=== PATIENT | female | born 1960 | race African-American/Black ===

== ENCOUNTER → 2016-09-05 | Outpatient (CLI) | payer MEDICARE, OTHER ==
[~2016-09-05] MED LIST: ACTOS PO; COUMADIN PO; DIOVAN PO; FLEXERIL10 MG PO; LIPITOR PO; LORTAB 5/500 TA1 TA1 PO; NORVASC PO; PEN-VEE K PO
--- NOTE | ~2016-09-05 | CT55 ---
[facility] A Service [facility] RADIOLOGY TEXT RESULTS PATIENT: SHARON BREWER LOCATION: [facility] : 56 UNIT #: [id number] AGE: [address]: Gretchen Celestin APRN SEX: F ORDER DR: [id number] [facility] [address] [place], [place] [address] [id number] O MR#: [id number] Acc #: [id number] NAME: SHARON BREWER : 1960 SEX: F STUDY DATE/TIME: 09/05/2016 14:52 UNIT: [facility] ROOM: STUDY DESCRIPTION: CT Chest W Con Attending Physician: Gretchen Celestin A.P.R.N. Ordering Physician: Gretchen Celestin A.P.R.N. Primary Care Physician: Generic Doctor Not In System MEDICAL IMAGING REPORT This report is preliminary unless electronic signature is present EXAM Chest CT with contrast HISTORY Abnormal chest x-ray 1 week ago. Cough, congestion, shortness of breath over the past 3 weeks. TECHNIQUE Axial imaging was obtained with contrast. 80 mL of Isovue was used. This CT exam was performed with one or more of the following radiation dose reduction techniques: automatic control, adjustment of mA and/or kV according to patient size, and iterative reconstruction. 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 There is no evidence of any change in the mediastinum. No new or enlarging mediastinal or hilar lymph nodes are seen. Again noted is narrowing of the trachea in the left right dimension. This is unchanged and likely related to emphysema. Lung window imaging shows emphysematous changes in both lungs. No suspicious infiltrates are seen. IMPRESSION Emphysema. 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 No change from the previous chest CT in 2014. No new abnormalities are noted. Dictated by... [facility] A Service [facility] RADIOLOGY TEXT RESULTS PATIENT: SHARON BREWER LOCATION: [facility] : 56 UNIT #: [id number] AGE: [address]: Gretchen Celestin APRN SEX: F ORDER DR: Robin Maurice M.D. THIS IS AN ELECTRONICALLY VERIFIED REPORT Robin Maurice M.D. at 09/05/2016 10:23 PM RADHA/carlos enrique TD: 09/05/2016 19:46 JOB #: [id number] MEDICAL IMAGING REPORT Page 1 of 1 COPY
[2016-09-05 17:50] LABS: POC - CREATININE 0.74 mg/dL (0.44-1.03); POC - GFR >60.0 mL/min (>60)
== END | disposition home or self-care (01) ==
LOC: CCAT 13:35
PROVIDERS: Nurse Practitioner Family
DX: R59.1 Generalized enlarged lymph nodes (principal); R91.8 Other nonspecific abnormal finding of lung field; J43.9 Emphysema, unspecified; I82.211 Chronic embolism and thrombosis of superior vena cava
CPT/HCPCS: 71260; 82565; Q9967